=== PATIENT | female | born 1975 | race Caucasian/White ===

== ENCOUNTER → 2017-04-19 | Day surgery (SDC) | payer BC ==
--- NOTE | 2017-04-20 07:56 | OP ---
DATE OF OPERATION: 04/19/2017 PREOPERATIVE DIAGNOSIS: Left breast mass, 3 o'clock, 2 cm from the nipple. POSTOPERATIVE DIAGNOSIS: Left breast mass, 3 o'clock, 2 cm from the nipple. PROCEDURE: Left breast ultrasound guided core biopsy with clip placement. ANESTHESIA: Local. ATTENDING SURGEON: Raquel Shaw MD ESTIMATED BLOOD LOSS: Minimal. COMPLICATIONS: None. DESCRIPTION OF PROCEDURE: Patient was made aware of the risks and benefits of the procedure and consented. She was placed in the supine position. Under sterile conditions with 1% Lidocaine for local anesthesia, a small antione was made in the skin. Using a 13-guage suction biopsy device with anterolateral approach under ultrasound guidance, multiple cores were obtained and submitted to Pathology. Likewise, under ultrasound guidance, a U-shaped clip was placed into the biopsy region. Well tolerated by patient. Steri-Strip and a sterile dressing were applied. Will contact her with results. RAQUEL SHAW M.D. [id number]
== END | disposition home or self-care (01) ==
LOC: FRADUS-SUR 10:34
PROVIDERS: ATTEND Surgery Surgical Oncology
PROC: 0HBU3ZX Excision of Left Breast, Percutaneous Approach, Diagnostic (ICD-10-PCS; principal; 2017-04-19)
DX: C50.812 Malignant neoplasm of overlapping sites of left female breast (principal); Z17.1 Estrogen receptor negative status [ER-]; N63.20 Unspecified lump in the left breast, unspecified quadrant
CPT/HCPCS: 19083; 77065-TC; 87899; 88305-TC; 88342-TC; A4648